=== PATIENT | male | born 1990 | race African-American/Black ===

== ENCOUNTER 2016-08-05 10:20 | Emergency (ER) | payer OTHER ==
[2016-08-05] MEDS ORDERED: Ondansetron INJ* 2 MG/ML VIAL IV ONE (11:25)
[2016-08-05] MEDS ORDERED: Dexamethasone IV* 4 MG/ML 1 ML (4 MG) IV SLOW PU ONE (11:25)
[2016-08-05] MEDS ORDERED: cefTRIAXone(*) 1 GM in NS 0.9% 50 ML* 50 ML IVPB ONE (11:25)
[2016-08-05] MEDS ORDERED: Ketorolac INJ* 30 MG/ML 1 ML VIAL IV PUSH ONE (11:28)
[2016-08-05 12:11] LABS: Hematocrit 36 % (42-52); Hemoglobin 11.5 g/dl (14.0-18.0); Mean Corpuscular HGB Conc 32 g/dl (31-36); Mean Corpuscular Hemoglobin 23 pg (27-31); Mean Corpuscular Volume 71 fL (80-94); Mean Platelet Volume 9 um3 (7.4-10.4); Red Blood Count 5.08 10^6/ul (4.0-5.4); Red Cell Distribution Width 14 % (10.5-15); White Blood Count 13.6 10^3/ul (3.5-10.8)
[2016-08-05 12:14] LABS: Add Diff/Slide Review? Slide Review Added; Comments Flag Yes
[2016-08-05 12:25] LABS: Albumin 4.2 g/dL (3.2-5.2); BUN/Creatinine Ratio 20.2 (8-20); C Reactive Protein 13.75 mg/L (< 5.00); Calcium 9.7 mg/dL (8.6-10.3); EGFR African American 143.2 (>60); EGFR Non-African American 111.3 (>60); Globulin 3.2 g/dL (2-4); Potassium 3.5 mmol/L (3.5-5.0); Total Bilirubin 0.5 mg/dL (0.2-1.0); Total Protein 7.4 g/dL (6.4-8.9)
[2016-08-05] MEDS ORDERED: Iohexol 300* (CONTRAST) 10 ML SDV IV ONE (12:53)
[2016-08-05 13:05] LABS: Manual Entry Verification AS; Mono Kit Lot# 6070033
[2016-08-05 13:06] LABS: Mono Internal Control QC Line Present
--- NOTE | 2016-08-05 13:11 | RAD ---
HISTORY: Trismus, sore throat, peritonsillar abscess COMPARISONS: None TECHNIQUE: Multiple contiguous axial CT scans were obtained of the neck after the administration of nonionic intravenous contrast, with coronal and sagittal multiplanar reformations. FINDINGS: BRAIN AND ORBITS: The visualized brain and orbits are normal. PARANASAL SINUSES: The visualized paranasal sinuses are clear. SALIVARY GLANDS: The parotid glands, submandibular glands, sublingual glands are normal. NASAL CAVITY/NASOPHARYNX: The nasal cavity and nasopharynx are normal. ORAL CAVITY/OROPHARYNX: There is a low-attenuation lesion with circumferential enhancement measuring 2.2 x 2.5 x 3.4 cm in size. This is located at the level of the oropharynx on the right, likely extending from the right pelvic and consult. There is no extension into the parapharyngeal fat. LARYNGEAL APPARATUS/HYPOPHARYNX: The laryngeal apparatus and hypopharynx are normal. UPPER AIRWAY/UPPER ESOPHAGUS: The visualized upper airway and esophagus are normal. LUNG APICES: The lung apices are clear. THYROID GLAND: The thyroid gland is normal. LYMPH NODES: There is no lymphadenopathy by size criteria. VASCULATURE: The vasculature is unremarkable. BONES AND SOFT TISSUES: There is straightening of the cervical lordosis. OTHER: None. IMPRESSION: 3.4 CM RIGHT PERITONSILLAR ABSCESS
[2016-08-05] MEDS: NS 0.9% 1000 ML* 2,000 ML IV ONE ×2 (14:01→14:04)
[2016-08-05 15:22] VITALS: BP 142/70
--- NOTE | 2016-08-05 15:46 | ED ---
Thomas Lujan Billy, scribed for Brooks Licona MD on 08/05/16 at 1121 . Throat Pain/Nasal Congestion - HPI Summary HPI Summary: Patient is a 26 year-old male coming to [facility] from [facility] with four days of sore throat. He also reports difficulty eating, swallowing, and speaking. He reports intermittent chills as well. He says his symptoms are exactly the same as a prior peritonsillar abscess 1 year ago. He was given antibiotics three days ago without improvement. Denies PSHx of tonsillectomy. - History of Current Complaint Chief Complaint: EDRashSkinAbscess Time Seen by Provider: 08/05/16 10:25 Hx Obtained From: Patient Onset/Duration: Gradual Onset, Lasting Days, Still Present Severity: Moderate Associated Signs And Symptoms: Positive: Dysphagia, Drooling Cough: None - Allergies/Home Medications Allergies/Adverse Reactions: Allergies Allergy/AdvReac Type Severity Reaction Status Date / Time No Known Allergies Allergy Verified 08/05/16 11:14 Home Medications: Home Medications NK [No Home Medications Reported] 08/05/16 [History Confirmed 08/05/16] PMH/Surg Hx/FS Hx/Imm Hx Endocrine/Hematology History: Denies: Hx Diabetes Cardiovascular History: Denies: Hx Hypertension Infectious Disease History: No Infectious Disease History: Denies: Traveled Outside the [place] in Last 30 Days - Family History Known Family History: Positive: Respiratory Disease - asthma (siblings), Seizure Disorder - mother - Social History Alcohol Use: None Substance Use Type: Reports: Marijuana Hx Tobacco Use: Yes Smoking Status (MU): Former Smoker Review of Systems Positive: Chills. Negative: Fever Positive: Sore Throat, Ear Ache - right All Other Systems Reviewed And Are Negative: Yes Physical Exam - Summary Physical Exam Summary: The patient is well-nourished in no acute distress and in no acute pain. The skin is warm and dry and skin color reflects adequate perfusion. HEENT: Positive trismus. Right-sided tragal tenderness and mastoid tenderness. The pupils are equal and reactive. The conjunctivae are clear and without drainage. Nares are patent and without drainage. Drooling. Mouth reveals moist mucous membranes and the throat is without exudate. Pharyngeal erythema. Uvula appears deviated to the left. Right-sided adenopathy. Muffled speech. The external ears are intact. The ear canals are patent and without drainage. The tympanic membranes are intact. Neck is supple with full range of motion and non-tender. There are no carotid bruits. There is no neck vein distension. Respiratory: Chest is non-tender. Lungs are clear to auscultation and breath sounds are symmetrical and equal. Cardiovascular: Hear is regular rate and rhythm. There is no murmur or rub auscultated. There is no peripheral edema and pulses are symmetrical and equal. Musculoskeletal: There is no back pain noted. Extremities are non-tender with full range of motion. There is good capillary refill. There is no peripheral edema or calf tenderness elicited. Neurological: Patient is alert and oriented to person, place and time. The patient has symmetrical motor strength in all four extremities. Psychiatric: The patient has an appropriate affect and does not exhibit any anxiety or depression. Triage Information Reviewed: Yes Vital Signs On Initial Exam: Initial Vitals Temp Pulse Resp BP Pulse Ox 98.0 F 60 16 149/80 100 08/05/16 10:21 08/05/16 10:21 08/05/16 10:21 08/05/16 10:21 08/05/16 10:21 Vital Signs Reviewed: Yes Diagnostics - Vital Signs Vital Signs Temp Pulse Resp BP Pulse Ox 08/05/16 11:05 97.7 F 80 16 146/73 98 08/05/16 10:21 98.0 F 60 16 149/80 100 - Laboratory Lab Results: Lab Results 08/05/16 08/05/16 08/05/16 Range/Units 11:55 11:55 11:55 WBC 13.6 H (3.5-10.8) 10^3/ul RBC 5.08 (4.0-5.4) 10^6/ul Hgb 11.5 L (14.0-18.0) g/dl Hct 36 L (42-52) % MCV 71 L (80-94) fL MCH 23 L (27-31) pg MCHC 32 (31-36) g/dl RDW 14 (10.5-15) % Plt Count 184 (150-450) 10^3/ul MPV 9 (7.4-10.4) um3 Neut % (Auto) 79.7 (38-83) % Lymph % (Auto) 13.1 L (25-47) % [place] % (Auto) 6.9 (1-9) % Eos % (Auto) 0.1 (0-6) % Baso % (Auto) 0.2 (0-2) % Absolute Neuts (auto) 10.9 H (1.5-7.7) 10^3/ul Absolute Lymphs (auto) 1.8 (1.0-4.8) 10^3/ul Absolute Monos (auto) 0.9 H (0-0.8) 10^3/ul Absolute Eos (auto) 0 (0-0.6) 10^3/ul Absolute Basos (auto) 0 (0-0.2) 10^3/ul Absolute Nucleated RBC 0 10^3/ul Nucleated RBC % 0 Sodium 138 (133-145) mmol/L Potassium 3.5 (3.5-5.0) mmol/L Chloride 106 (101-111) mmol/L Carbon Dioxide 25 (22-32) mmol/L Anion Gap 7 (2-11) mmol/L BUN 17 (6-24) mg/dL Creatinine 0.84 (0.67-1.17) mg/dL Est GFR ( Amer) 143.2 (>60) Est GFR (Non-Af Amer) 111.3 (>60) BUN/Creatinine Ratio 20.2 H (8-20) Glucose 90 (70-100) mg/dL Lactic Acid 0.8 (0.5-2.0) mmol/L Calcium 9.7 (8.6-10.3) mg/dL Total Bilirubin 0.50 (0.2-1.0) mg/dL AST 14 (13-39) U/L ALT 14 (7-52) U/L Alkaline Phosphatase 65 (34-104) U/L C-Reactive Protein 13.75 H (< 5.00) mg/L Total Protein 7.4 (6.4-8.9) g/dL Albumin 4.2 (3.2-5.2) g/dL Globulin 3.2 (2-4) g/dL Albumin/Globulin Ratio 1.3 (1-3) Monoscreen Negative (Negative) Group A Strep Rapid (Negative) 08/05/16 Range/Units 12:38 WBC (3.5-10.8) 10^3/ul RBC (4.0-5.4) 10^6/ul Hgb (14.0-18.0) g/dl Hct (42-52) % MCV (80-94) fL MCH (27-31) pg MCHC (31-36) g/dl RDW (10.5-15) % Plt Count (150-450) 10^3/ul MPV (7.4-10.4) um3 Neut % (Auto) (38-83) % Lymph % (Auto) (25-47) % [place] % (Auto) (1-9) % Eos % (Auto) (0-6) % Baso % (Auto) (0-2) % Absolute Neuts (auto) (1.5-7.7) 10^3/ul Absolute Lymphs (auto) (1.0-4.8) 10^3/ul Absolute Monos (auto) (0-0.8) 10^3/ul Absolute Eos (auto) (0-0.6) 10^3/ul Absolute Basos (auto) (0-0.2) 10^3/ul Absolute Nucleated RBC 10^3/ul Nucleated RBC % Sodium (133-145) mmol/L Potassium (3.5-5.0) mmol/L Chloride (101-111) mmol/L Carbon Dioxide (22-32) mmol/L Anion Gap (2-11) mmol/L BUN (6-24) mg/dL Creatinine (0.67-1.17) mg/dL Est GFR ( Amer) (>60) Est GFR (Non-Af Amer) (>60) BUN/Creatinine Ratio (8-20) Glucose (70-100) mg/dL Lactic Acid (0.5-2.0) mmol/L Calcium (8.6-10.3) mg/dL Total Bilirubin (0.2-1.0) mg/dL AST (13-39) U/L ALT (7-52) U/L Alkaline Phosphatase (34-104) U/L C-Reactive Protein (< 5.00) mg/L Total Protein (6.4-8.9) g/dL Albumin (3.2-5.2) g/dL Globulin (2-4) g/dL Albumin/Globulin Ratio (1-3) Monoscreen (Negative) Group A Strep Rapid Negative (Negative) Result Diagrams: 08/05/16 11:55 08/05/16 11:55 Lab Statement: Any lab studies that have been ordered have been reviewed, and results considered in the medical decision making process. - CT neck CT Interpretation Completed By: Radiologist - 3.4 CM RIGHT PERITONSILLAR ABSCESS Re-Evaluation - Re-Evaluation First Eval Re-Evaluation Time: 14:17 Comment: Re-evaluated the patient with Dr. Cohen. EENT Course/Dx - Course Assessment/Plan: 26 year-old male coming to [facility] presenting with throat pain. In the ED course, patient was given Decadron, Rocephin, Toradol, and Zofran. He was also hydrated with IV fluids. Rapid strep and monoscreen both negative. CT of the neck confirmed a 3.4cm right peritonsillar abscess. The abscess was drained by Dr. Cohen, ENT. He was recommended to be discharged back to [facility] to follow up with him again in several weeks, and to be prescribed Clindamycin. - Differential Diagnoses Differential Diagnoses: Mastoiditis, Tonsilitis, Other - peritonsilar abscess - Diagnoses Provider Diagnoses: Peritonsillar abscess - Provider Notifications Discussed Care of Patient with: Dr. Cohen (ENT) @ 1416: agrees to drain the abscess. Dr. Cohen (ENT) @ 1435: after draining the abscess, he says patient should be discharged with Clindamycin to follow up again in several weeks. [facility] @ 1449: snf has access to Clindamycin in their pharmacy on-site. Discharge - Discharge Plan Condition: Stable Disposition: HOME Patient Education Materials: Peritonsillar Abscess (ED) Referrals: [facility] PHYSICIAN REFERRAL [Outside] Cuate Cohen MD [Medical Doctor] - (FOLLOW UP WITH DR. COHEN IN 1-2 WEEKS.) Additional Instructions: TAKE CLINDAMYCIN 300MG FOUR TIMES DAILY FOR [address]YS[address] FOLLOW UP WITH DR. COHEN (ENT) IN 1-2 WEEKS. The documentation as recorded by the Thomas arana Billy accurately reflects the service I personally performed and the decisions made by me, Brooks Licona MD.
--- NOTE | 2016-08-06 00:02 | CONS ---
ER CONSULTATION NOTE: DATE OF CONSULT: 08/05/16 - [facility] DEPT CONSULTING PHYSICIAN: Dr. Sands. REQUESTING CONSULT: Dr. Licona. REASON FOR CONSULT: Peritonsillar abscess. HISTORY OF PRESENT ILLNESS: The patient has a history of having a couple of peritonsillar abscesses drained in the past and he has been having increasing throat pain on the right side despite being on antibiotics. PHYSICAL EXAM: He has a bulging right peritonsillar area with a medialized right tonsil consistent with having a right peritonsillar abscess. Incision and drainage of the peritonsillar abscess was performed. The area was sprayed with Cetacaine, injected with 1% lidocaine with epinephrine, a needle was used to aspirate with localization of the abscess cavity. An incision was made with an 11 blade with release of copious amounts of pus. This was further achieved by inserting a Anastasiya clamp and spreading. The patient tolerated this procedure well without complications. ASSESSMENT: I performed an incision and drainage of a right peritonsillar abscess under local anesthesia. RECOMMENDATIONS: I spoke to Dr. Licona. He is going to put the patient on clindamycin 300 mg 4 times a day, and the patient should follow up with me as an outpatient because he is going to need a tonsillectomy given the fact that this has occurred several times. [id number]/[facility] #: [id number] MTDD
== END 2016-08-05 15:22 | disposition home or self-care (01) ==
LOC: ED 10:20
DX: J36 Peritonsillar abscess (principal); J02.9 Acute pharyngitis, unspecified; R13.10 Dysphagia, unspecified; H92.01 Otalgia, right ear; Z87.891 Personal history of nicotine dependence
CPT/HCPCS: 36415; 70491; 80053; 83605; 85025; 86140; 86308; 87040; 87651; 96374; 96375; 99284; J0696; J1100; J1885; J2405; Q9967